=== PATIENT | male | born 1930 ===

== ENCOUNTER 2017-09-18 12:12 | Observation (INO) | payer MEDICARE, OTHER ==
[2017-09-18 12:22] VITALS: BMI 32.1
--- NOTE | 2017-09-18 12:57 | ED PDOC ---
HPI: Chest Pain Time Seen by Provider: 09/18/17 12:34 Chief Complaint (Nursing): Chest Pain Chief Complaint (Provider): chest pain dizziness History Per: Patient, Family, Senior Compensation Analyst History/Exam Limitations: no limitations Onset/Duration Of Symptoms: Hrs (2), Sudden Onset Current Symptoms Are (Timing): Better Severity: Severe Quality: Sharp Associated Symptoms: Dyspnea, Other (dizziness). denies: Nausea Modifying Factors: None Exacerbating Factors: None Alleviating Factors: None Additional Complaint(s): 87yo male hx DM, HTN and high cholesterol presents w family states he had chest pain sudden onset around 11am, left sided radiating to left arm associated with dizziness and mild dyspnea. Past Medical History Reviewed: Historical Data, Nursing Documentation, Vital Signs Vital Signs: Last Vital Signs Temp 98.1 F 09/18/17 12:48 Pulse 88 09/18/17 12:48 Resp 16 09/18/17 12:48 BP 114/54 L 09/18/17 12:48 Pulse Ox 97 09/18/17 12:48 - Medical History PMH: Asthma, Diabetes (type II), HTN, Hypercholesterolemia Denies: HIV, Chronic Kidney Disease Other PMH: denies cardiac history, no prior cardiology eval - Family History Family History: States: Unknown Family Hx - Living Arrangements Living Arrangements: With Family - Home Medications Home Medications: Ambulatory Orders Medication Instructions Recorded Aspirin [Ecotrin] 81 mg PO DAILY #0 tabec 12/24/15 Enalapril Maleate [Vasotec] 10 mg PO DAILY #0 tab 12/24/15 Folic Acid 1 mg PO DAILY #0 tab 12/24/15 [place]-3 Acid Ethyl Esters [Lovaza] 1 gm PO DAILY #0 capsule 12/24/15 Rosuvastatin Calcium [Crestor] 5 mg PO DAILY #0 tab 12/24/15 amLODIPine [Norvasc] 10 mg PO DAILY #0 tab 12/24/15 Acetaminophen [Extra Strength 1,000 mg PO TID #50 tablet 03/31/16 Non-Aspirin] Amoxicillin/Clavulanate [Augmentin 1 tab PO Q12H #20 tab 03/31/16 875 MG-125 MG] - Allergies Allergies/Adverse Reactions: Allergies Allergy/AdvReac Type Severity Reaction Status Date / Time No Known Allergies Allergy Verified 03/31/16 12:16 Review of Systems ROS Statement: Except As Marked, All Systems Reviewed And Found Negative Constitutional: Negative for: Fever, Chills Cardiovascular: Positive for: Chest Pain, Palpitations, Light Headedness. Negative for: Paroxysmal Noc. Dyspnea Respiratory: Negative for: Cough, Shortness of Breath Gastrointestinal: Negative for: Nausea, Abdominal Pain Genitourinary Male: Negative for: Dysuria Musculoskeletal: Positive for: Arm Pain. Negative for: Neck Pain, Back Pain Skin: Negative for: Rash, Lesions, Jaundice Neurological: Positive for: Dizziness. Negative for: Weakness, Numbness, Seizures, Headache Psych: Negative for: Suicidal ideation Physical Exam - Reviewed Nursing Documentation Reviewed: Yes Vital Signs Reviewed: Yes - Physical Exam Appears: Positive for: Well, Non-toxic, No Acute Distress Head Exam: Positive for: ATRAUMATIC, NORMAL INSPECTION, NORMOCEPHALIC Skin: Positive for: Normal Color, Warm, DRY Eye Exam: Positive for: EOMI, Normal appearance, PERRL ENT: Positive for: Normal ENT Inspection Neck: Positive for: Normal, Painless ROM Cardiovascular/Chest: Positive for: Regular Rate, Rhythm Respiratory: Positive for: CNT, Normal Breath Sounds Gastrointestinal/Abdominal: Positive for: Soft. Negative for: Tenderness, Guarding Back: Positive for: Normal Inspection Extremity: Positive for: Normal ROM Neurologic/Psych: Positive for: Alert, Oriented. Negative for: Motor/Sensory Deficits - ECG ECG: Positive for: Interpreted By Me ECG Rhythm: Positive for: Sinus Rhythm, Nonspecific Changes Interpretation Of ECG: PVCs Rate: 87 O2 Sat by Pulse Oximetry: 97 Pulse Ox Interpretation: Normal Medical Decision Making Medical Decision Making: workup for chest pain in elderly male with several risk factors for CAD initiated ASA/ nitro ordered instructed if pain returns to notify RN or MD immediately CXR/labs ordered r/o ACS Disposition - Disposition
[2017-09-18 13:04] LABS: BASO # 0.1 K/uL (0.0-0.2); BASO % 0.9 % (0.0-2.0); EOS # 0.3 K/uL (0.0-0.7); EOS % 2.9 % (0.0-4.0); HEMOGLOBIN 13.5 g/dL (12.0-18.0); LYMPH # 2.7 K/uL (1.0-4.3); LYMPH % 28.2 % (20.0-40.0); MEAN CELL VOLUME 93.8 fl (80.0-94.0); MEAN CORPUSCULAR HEMOGLOBIN 32.4 pg (27.0-31.0); MEAN CORPUSCULAR HGB CONC 34.5 g/dL (33.0-37.0); MEAN PLATELET VOLUME 9.2 fl (7.2-11.7); MONO # 0.6 K/uL (0.0-0.8); MONO % 6.5 % (0.0-10.0); NEUT # 5.8 K/uL (1.8-7.0); NEUT % 61.5 % (50.0-75.0); NRBC % 0.1 % (0.0-0.0); RBC 4.18 Mil/uL (4.40-5.90); WHITE BLOOD COUNT 9.4 K/uL (4.8-10.8)
[2017-09-18 13:12] LABS: ALB/GLOB RATIO 1.1 (1.0-2.1); ALBUMIN 4.2 g/dL (3.5-5.0); ALT/SGPT 48 U/L (21-72); AST/SGOT 33 U/L (17-59); BLOOD UREA NITROGEN 15 mg/dl (9-20); CALCIUM 8.9 mg/dL (8.4-10.2); GFR AFRICAN-AMERICAN > 60; GFR NON-AFRICAN AMERICAN > 60
[2017-09-18 13:14] LABS: URINE BILIRUBIN NEGATIVE (NEGATIVE); URINE BLOOD NEGATIVE (NEGATIVE); URINE CLARITY CLEAR (Clear); URINE COLOR STRAW (YELLOW); URINE GLUCOSE (UA) NEG (Normal); URINE LEUKOCYTE ESTERASE NEG Leu/uL (Negative); URINE PROTEIN NEGATIVE (NEGATIVE); URINE UROBILINOGEN 0.2-1.0 mg/dL (0.2-1.0)
[2017-09-18 13:21] LABS: PARTIAL THROMBOPLASTIN TIME 31.5 Seconds (25.6-37.1); PROTHROMBIN TIME 10.8 Seconds (9.8-13.1)
[2017-09-18 13:23] LABS: B-TYPE NATRIURETIC PEPTIDE 210 pg/ml (0-900)
--- NOTE | 2017-09-18 15:31 | CP.PCM.HP ---
History of Present Illness - History of Present Illness History of Present Illness: CC: chest pain HPI: 87 year old male PMH DM?, HTN, HLD presents after an episode of chest pain this morning at rest, pressure/aching in nature, left sided, non radiating, assc with dizziness, not associated with dyspnea or malaise. Denies chest pain or dyspnea on exertion, however difficult to assess if patient reliability as it is clear he does not wish to be admitted. Patient did agree to stay at the urging of family members due to CV risk. HD stable, NAD. ROS: per HPI , all other systems reviewed and negative PMSH: DM? HTN, HLD FH: denies SH: denies tobacco, ETOH, IVDU meds: as below NKDA Present on Admission - Present on Admission Any Indicators Present on Admission: No Past Patient History - Past Medical History & Family History Past Medical History?: Yes - Past Social History Smoking Status: Current Some Days Smoker - CARDIAC Hx Cardiac Disorders: Yes - PULMONARY Hx Respiratory Disorders: Yes - NEUROLOGICAL Hx Neurological Disorder: No - HEENT Hx HEENT Problems: No - RENAL Hx Chronic Kidney Disease: No - ENDOCRINE/METABOLIC Hx Endocrine Disorders: Yes - HEMATOLOGICAL/ONCOLOGICAL Hx Human Immunodeficiency Virus (HIV): No - INTEGUMENTARY Hx Dermatological Problems: No - MUSCULOSKELETAL/RHEUMATOLOGICAL Hx Musculoskeletal Disorders: No Hx Falls: No - GASTROINTESTINAL Hx Gastrointestinal Disorders: No - GENITOURINARY/GYNECOLOGICAL Hx Genitourinary Disorders: No - PSYCHIATRIC Hx Psychophysiologic Disorder: No Hx Substance Use: No - SURGICAL HISTORY Hx Surgeries: No - ANESTHESIA Hx Anesthesia: Yes Hx Anesthesia Reactions: No Hx Malignant Hyperthermia: No Meds Allergies/Adverse Reactions: Allergies Allergy/AdvReac Type Severity Reaction Status Date / Time No Known Allergies Allergy Verified 03/31/16 12:16 Physical Exam - Additional Findings Additional findings: Vitals Reviewed GEN: WDWN, alert, cooperative HEENT: NCAT, PERRL, EOMI HEART: RRR, +S1S2, NO MRG LUNG: CTAB, NO WRR ABD: soft, NT, ND, No HSM, No masses EXT: normal pedal pulses, normal capillary refill NEURO: awake, alert, no focal deficits SKIN: warm, dry- PSYCH: normal mood, normal affect Results - Vital Signs Recent Vital Signs: Last Vital Signs Temp 98.2 F 09/18/17 15:21 Pulse 85 09/18/17 15:21 Resp 16 09/18/17 15:21 BP 179/89 H 09/18/17 15:21 Pulse Ox 98 09/18/17 15:21 - Labs Result Diagrams: 09/18/17 12:55 09/18/17 12:55 Labs: Laboratory Results - last 24 hr 09/18/17 09/18/17 09/18/17 12:55 12:55 12:55 WBC 9.4 RBC 4.18 L Hgb 13.5 Hct 39.2 MCV 93.8 MCH 32.4 H MCHC 34.5 RDW 14.0 Plt Count 231 MPV 9.2 Neut % (Auto) 61.5 Lymph % (Auto) 28.2 [place] % (Auto) 6.5 Eos % (Auto) 2.9 Baso % (Auto) 0.9 Neut # (Auto) 5.8 Lymph # (Auto) 2.7 [place] # (Auto) 0.6 Eos # (Auto) 0.3 Baso # (Auto) 0.1 PT 10.8 INR 1.0 APTT 31.5 Sodium 140 Potassium 3.9 Chloride 100 Carbon Dioxide 25 Anion Gap 19 BUN 15 Creatinine 0.6 L Est GFR ( Amer) > 60 Est GFR (Non-Af Amer) > 60 Random Glucose 162 H Calcium 8.9 Total Bilirubin 0.5 AST 33 ALT 48 Alkaline Phosphatase 99 Troponin I < 0.0120 NT-Pro-B Natriuret Pep 210 Total Protein 7.9 Albumin 4.2 Globulin 3.7 Albumin/Globulin Ratio 1.1 Urine Color Urine Clarity Urine pH Ur Specific [place] Urine Protein Urine Glucose (UA) Urine Ketones Urine Blood Urine Nitrate Urine Bilirubin Urine Urobilinogen Ur Leukocyte Esterase Urine RBC (Auto) Urine Microscopic WBC 09/18/17 13:05 WBC RBC Hgb Hct MCV MCH MCHC RDW Plt Count MPV Neut % (Auto) Lymph % (Auto) [place] % (Auto) Eos % (Auto) Baso % (Auto) Neut # (Auto) Lymph # (Auto) [place] # (Auto) Eos # (Auto) Baso # (Auto) PT INR APTT Sodium Potassium Chloride Carbon Dioxide Anion Gap BUN Creatinine Est GFR ( Amer) Est GFR (Non-Af Amer) Random Glucose Calcium Total Bilirubin AST ALT Alkaline Phosphatase Troponin I NT-Pro-B Natriuret Pep Total Protein Albumin Globulin Albumin/Globulin Ratio Urine Color Straw Urine Clarity Clear Urine pH 6.0 Ur Specific [place] 1.008 Urine Protein Negative Urine Glucose (UA) Neg Urine Ketones Negative Urine Blood Negative Urine Nitrate Negative Urine Bilirubin Negative Urine Urobilinogen 0.2-1.0 Ur Leukocyte Esterase Neg Urine RBC (Auto) < 1 Urine Microscopic WBC < 1 Assessment & Plan - Assessment and Plan (Free Text) Plan: 87 year old male PMH DM?, HTN, HLD presents after an episode of chest pain this morning at rest, pressure/aching in nature, left sided, non radiating, assc with dizziness, not associated with dyspnea or malaise. Denies chest pain or dyspnea on exertion, however difficult to assess if patient reliability as it is clear he does not wish to be admitted. Patient did agree to stay at the urging of family members due to CV risk. HD stable, NAD. Chest Pain HTN HLD - currently without chest pain - EKG no changes from prior - Enzymes neg x1, trend q2 - ASA, Plavix, BB, ACEI, Statin ordered - monitor on TELE - Cardiology Consult Dr. Tate for eval for possible Stress Test? DM? - A1C pending VTE - Lovenox
[2017-09-18] MEDS: Metoprolol Succinate 25 mg XL Tab PO SCH (16:26)
--- NOTE | 2017-09-18 19:28 | RAD ---
HISTORY: chest pain/ r/o infiltrate COMPARISON: No prior. TECHNIQUE: Chest PA and lateral FINDINGS: LUNGS: No active pulmonary disease. PLEURA: No significant pleural effusion identified. No pneumothorax apparent. CARDIOVASCULAR: Normal. Atherosclerotic aorta. OSSEOUS STRUCTURES: No significant abnormalities. VISUALIZED UPPER ABDOMEN: Normal. OTHER FINDINGS: None. IMPRESSION: No active disease.
[2017-09-19 01:42] LABS: HDL CHOLESTEROL 38 MG/DL (30-70)
[2017-09-19 01:52] LABS: LDL CHOLESTEROL 79 mg/dL (0-129)
[2017-09-19 07:53] VITALS: RESP 18
[2017-09-19] MEDS: Metoprolol Succinate 25 mg XL Tab PO SCH (07:59)
[2017-09-19] MEDS ORDERED: Omega-3-Acid Ethyl Esters 1 GM Cap PO SCH (09:00)
[2017-09-19] MEDS ORDERED: Enoxaparin 40 mg Syringe SC SCH (09:00)
--- NOTE | 2017-09-19 09:58 | CP.PCM.CON ---
History of Present Illness - History of Present Illness History of Present Illness: 87 y/o male admitted with left sided chest tenderness Pt claims that yesterday he devoloped left anterior wall chest pin point tenderness Tender to palpate EKG: normal Echo: normal Troponin: neg x 3 Pain is reproducible on palpation Past Patient History - Past Medical History & Family History Past Medical History?: Yes - Past Social History Smoking Status: Never Smoked - CARDIAC Hx Cardiac Disorders: Yes Hx Hypercholesterolemia: Yes Hx Hypertension: Yes - PULMONARY Hx Respiratory Disorders: Yes Hx Asthma: Yes - NEUROLOGICAL Hx Neurological Disorder: No - HEENT Hx HEENT Problems: No - RENAL Hx Chronic Kidney Disease: No - ENDOCRINE/METABOLIC Hx Endocrine Disorders: Yes Hx Diabetes Mellitus Type 2: Yes - HEMATOLOGICAL/ONCOLOGICAL Hx Blood Disorders: No Hx AIDS: No Hx Human Immunodeficiency Virus (HIV): No - INTEGUMENTARY Hx Dermatological Problems: No - MUSCULOSKELETAL/RHEUMATOLOGICAL Hx Musculoskeletal Disorders: No Hx Falls: No - GASTROINTESTINAL Hx Gastrointestinal Disorders: No - GENITOURINARY/GYNECOLOGICAL Hx Genitourinary Disorders: No - PSYCHIATRIC Hx Psychophysiologic Disorder: No Hx Substance Use: No - SURGICAL HISTORY Hx Surgeries: No - ANESTHESIA Hx Anesthesia: Yes Hx Anesthesia Reactions: No Hx Malignant Hyperthermia: No Has any member of the family had a problem w/ anesthesia?: No Meds Allergies/Adverse Reactions: Allergies Allergy/AdvReac Type Severity Reaction Status Date / Time No Known Allergies Allergy Verified 03/31/16 12:16 - Medications Medications: Current Medications Amlodipine Besylate (Norvasc) 10 mg PO DAILY [facility] Last Admin: 09/19/17 08:01 Dose: 10 mg Aspirin (Ecotrin) 81 mg PO DAILY [facility] Last Admin: 09/19/17 08:00 Dose: 81 mg Atorvastatin Calcium (Lipitor) 10 mg PO DAILY [facility] Last Admin: 09/19/17 08:00 Dose: 10 mg Clopidogrel Bisulfate (Plavix) 75 mg PO DAILY [facility] Last Admin: 09/19/17 08:00 Dose: 75 mg Enalapril Maleate (Vasotec) 10 mg PO DAILY [facility] Last Admin: 09/19/17 08:00 Dose: 10 mg Enoxaparin Sodium (Lovenox) 40 mg SC DAILY [facility] PRN Reason: Protocol Last Admin: 09/19/17 08:01 Dose: Not Given Folic Acid (Folic Acid) 1 mg PO DAILY [facility] Last Admin: 09/19/17 08:00 Dose: 1 mg Metoprolol Succinate (Toprol Xl) 25 mg PO DAILY [facility] Last Admin: 09/19/17 07:59 Dose: 25 mg [id number] Ethyl Esters (Lovaza) 1 gm PO DAILY [facility] Last Admin: 09/19/17 07:59 Dose: 1 gm Physical Exam - Respiratory Exam Respiratory Exam: NORMAL BREATHING PATTERN - Cardiovascular Exam Cardiovascular Exam: REGULAR RHYTHM Results - Vital Signs Recent Vital Signs: Last Vital Signs Temp 98.1 F 09/19/17 07:52 Pulse 75 09/19/17 08:01 Resp 18 09/19/17 07:52 BP 169/75 H 09/19/17 08:01 Pulse Ox 99 09/19/17 07:52 - Labs Result Diagrams: 09/18/17 12:55 09/18/17 12:55 Labs: Laboratory Results - last 24 hr 09/18/17 09/18/17 09/18/17 12:55 12:55 12:55 WBC 9.4 RBC 4.18 L Hgb 13.5 Hct 39.2 MCV 93.8 MCH 32.4 H MCHC 34.5 RDW 14.0 Plt Count 231 MPV 9.2 Neut % (Auto) 61.5 Lymph % (Auto) 28.2 [place] % (Auto) 6.5 Eos % (Auto) 2.9 Baso % (Auto) 0.9 Neut # (Auto) 5.8 Lymph # (Auto) 2.7 [place] # (Auto) 0.6 Eos # (Auto) 0.3 Baso # (Auto) 0.1 PT 10.8 INR 1.0 APTT 31.5 Sodium 140 Potassium 3.9 Chloride 100 Carbon Dioxide 25 Anion Gap 19 BUN 15 Creatinine 0.6 L Est GFR ( Amer) > 60 Est GFR (Non-Af Amer) > 60 Random Glucose 162 H Calcium 8.9 Total Bilirubin 0.5 AST 33 ALT 48 Alkaline Phosphatase 99 Troponin I < 0.0120 NT-Pro-B Natriuret Pep 210 Total Protein 7.9 Albumin 4.2 Globulin 3.7 Albumin/Globulin Ratio 1.1 Triglycerides Cholesterol LDL Cholesterol Direct HDL Cholesterol Urine Color Urine Clarity Urine pH Ur Specific [place] Urine Protein Urine Glucose (UA) Urine Ketones Urine Blood Urine Nitrate Urine Bilirubin Urine Urobilinogen Ur Leukocyte Esterase Urine RBC (Auto) Urine Microscopic WBC 09/18/17 09/18/17 09/19/17 13:05 18:30 01:27 WBC RBC Hgb Hct MCV MCH MCHC RDW Plt Count MPV Neut % (Auto) Lymph % (Auto) [place] % (Auto) Eos % (Auto) Baso % (Auto) Neut # (Auto) Lymph # (Auto) [place] # (Auto) Eos # (Auto) Baso # (Auto) PT INR APTT Sodium Potassium Chloride Carbon Dioxide Anion Gap BUN Creatinine Est GFR ( Amer) Est GFR (Non-Af Amer) Random Glucose Calcium Total Bilirubin AST ALT Alkaline Phosphatase Troponin I < 0.0120 < 0.0120 NT-Pro-B Natriuret Pep Total Protein Albumin Globulin Albumin/Globulin Ratio Triglycerides Cholesterol LDL Cholesterol Direct HDL Cholesterol Urine Color Straw Urine Clarity Clear Urine pH 6.0 Ur Specific [place] 1.008 Urine Protein Negative Urine Glucose (UA) Neg Urine Ketones Negative Urine Blood Negative Urine Nitrate Negative Urine Bilirubin Negative Urine Urobilinogen 0.2-1.0 Ur Leukocyte Esterase Neg Urine RBC (Auto) < 1 Urine Microscopic WBC < 1 09/19/17 01:30 WBC RBC Hgb Hct MCV MCH MCHC RDW Plt Count MPV Neut % (Auto) Lymph % (Auto) [place] % (Auto) Eos % (Auto) Baso % (Auto) Neut # (Auto) Lymph # (Auto) [place] # (Auto) Eos # (Auto) Baso # (Auto) PT INR APTT Sodium Potassium Chloride Carbon Dioxide Anion Gap BUN Creatinine Est GFR ( Amer) Est GFR (Non-Af Amer) Random Glucose Calcium Total Bilirubin AST ALT Alkaline Phosphatase Troponin I NT-Pro-B Natriuret Pep Total Protein Albumin Globulin Albumin/Globulin Ratio Triglycerides 224 H D Cholesterol 155 LDL Cholesterol Direct 79 HDL Cholesterol 38 Urine Color Urine Clarity Urine pH Ur Specific [place] Urine Protein Urine Glucose (UA) Urine Ketones Urine Blood Urine Nitrate Urine Bilirubin Urine Urobilinogen Ur Leukocyte Esterase Urine RBC (Auto) Urine Microscopic WBC Assessment & Plan (1) Chest wall pain Assessment and Plan: Musculoskeletal Pain Pt may be discharged Status: Acute
--- NOTE | 2017-09-19 11:40 | CP.PCM.DIS ---
Provider - Provider Date of Admission: 09/18/17 13:39 Attending physician: Katelyn Bonilla DO Time Spent in preparation of Discharge (in minutes): 30 Diagnosis - Discharge Diagnosis (1) Chest pain Status: Acute (2) Chest wall pain Status: Acute Hospital Course - Lab Results Lab Results: Most Recent Lab Values WBC 9.4 K/uL (4.8-10.8) 09/18/17 12:55 RBC 4.18 Mil/uL (4.40-5.90) L 09/18/17 12:55 Hgb 13.5 g/dL (12.0-18.0) 09/18/17 12:55 Hct 39.2 % (35.0-51.0) 09/18/17 12:55 MCV 93.8 fl (80.0-94.0) 09/18/17 12:55 MCH 32.4 pg (27.0-31.0) H 09/18/17 12:55 MCHC 34.5 g/dL (33.0-37.0) 09/18/17 12:55 RDW 14.0 % (11.5-14.5) 09/18/17 12:55 Plt Count 231 K/uL (130-400) 09/18/17 12:55 MPV 9.2 fl (7.2-11.7) 09/18/17 12:55 Neut % (Auto) 61.5 % (50.0-75.0) 09/18/17 12:55 Lymph % (Auto) 28.2 % (20.0-40.0) 09/18/17 12:55 Power % (Auto) 6.5 % (0.0-10.0) 09/18/17 12:55 Eos % (Auto) 2.9 % (0.0-4.0) 09/18/17 12:55 Baso % (Auto) 0.9 % (0.0-2.0) 09/18/17 12:55 Neut # (Auto) 5.8 K/uL (1.8-7.0) 09/18/17 12:55 Lymph # (Auto) 2.7 K/uL (1.0-4.3) 09/18/17 12:55 Power # (Auto) 0.6 K/uL (0.0-0.8) 09/18/17 12:55 Eos # (Auto) 0.3 K/uL (0.0-0.7) 09/18/17 12:55 Baso # (Auto) 0.1 K/uL (0.0-0.2) 09/18/17 12:55 PT 10.8 Seconds (9.8-13.1) 09/18/17 12:55 INR 1.0 (0.9-1.2) 09/18/17 12:55 APTT 31.5 Seconds (25.6-37.1) 09/18/17 12:55 Sodium 140 mmol/l (132-148) 09/18/17 12:55 Potassium 3.9 MMOL/L (3.6-5.0) 09/18/17 12:55 Chloride 100 mmol/L (98-107) 09/18/17 12:55 Carbon Dioxide 25 mmol/L (22-30) 09/18/17 12:55 Anion Gap 19 (10-20) 09/18/17 12:55 BUN 15 mg/dl (9-20) 09/18/17 12:55 Creatinine 0.6 mg/dl (0.8-1.5) L 09/18/17 12:55 Est GFR ( Amer) > 60 09/18/17 12:55 Est GFR (Non-Af Amer) > 60 09/18/17 12:55 Random Glucose 162 mg/dL (75-110) H 09/18/17 12:55 Calcium 8.9 mg/dL (8.4-10.2) 09/18/17 12:55 Total Bilirubin 0.5 mg/dl (0.2-1.3) 09/18/17 12:55 AST 33 U/L (17-59) 09/18/17 12:55 ALT 48 U/L (21-72) 09/18/17 12:55 Alkaline Phosphatase 99 U/L (38-126) 09/18/17 12:55 Troponin I < 0.0120 ng/mL (0.00-0.120) 09/19/17 01:27 NT-Pro-B Natriuret Pep 210 pg/ml (0-900) 09/18/17 12:55 Total Protein 7.9 G/DL (6.3-8.2) 09/18/17 12:55 Albumin 4.2 g/dL (3.5-5.0) 09/18/17 12:55 Globulin 3.7 gm/dL (2.2-3.9) 09/18/17 12:55 Albumin/Globulin Ratio 1.1 (1.0-2.1) 09/18/17 12:55 Triglycerides 224 mg/DL (0-149) H D 09/19/17 01:30 Cholesterol 155 mg/dL (0-199) 09/19/17 01:30 LDL Cholesterol Direct 79 mg/dL (0-129) 09/19/17 01:30 HDL Cholesterol 38 MG/DL (30-70) 09/19/17 01:30 Urine Color Straw (YELLOW) 09/18/17 13:05 Urine Clarity Clear (Clear) 09/18/17 13:05 Urine pH 6.0 (5.0-8.0) 09/18/17 13:05 Ur Specific [place] 1.008 (1.003-1.030) 09/18/17 13:05 Urine Protein Negative mg/dL (NEGATIVE) 09/18/17 13:05 Urine Glucose (UA) Neg mg/dL (Normal) 09/18/17 13:05 Urine Ketones Negative mg/dL (NEGATIVE) 09/18/17 13:05 Urine Blood Negative (NEGATIVE) 09/18/17 13:05 Urine Nitrate Negative (NEGATIVE) 09/18/17 13:05 Urine Bilirubin Negative (NEGATIVE) 09/18/17 13:05 Urine Urobilinogen 0.2-1.0 mg/dL (0.2-1.0) 09/18/17 13:05 Ur Leukocyte Esterase Neg Milo/uL (Negative) 09/18/17 13:05 Urine RBC (Auto) < 1 /hpf (0-3) 09/18/17 13:05 Urine Microscopic WBC < 1 /hpf (0-5) 09/18/17 13:05 - Hospital Course Hospital Course: 87 year old male PMH DM?, HTN, HLD presents after an episode of chest pain this morning at rest, pressure/aching in nature, left sided, non radiating, assc with dizziness, not associated with dyspnea or malaise. Denies chest pain or dyspnea on exertion, however difficult to assess if patient reliability as it is clear he does not wish to be admitted. Patient did agree to stay at the urging of family members due to CV risk. HD stable, NAD. Pt evaluated by cardiology, stable for discharge home. Troponins negative x3. Follow up with PCP in one week. Discharge Exam - Head Exam Additional comments: Vitals Reviewed GEN: WDWN, alert, cooperative HEENT: NCAT, PERRL, EOMI HEART: RRR, +S1S2, NO MRG LUNG: CTAB, NO WRR ABD: soft, NT, ND, No HSM, No masses EXT: normal pedal pulses, normal capillary refill NEURO: awake, alert, no focal deficits SKIN: warm, dry- PSYCH: normal mood, normal affect Discharge Plan - Discharge Medications Prescriptions: amLODIPine [Norvasc] 10 mg PO DAILY #30 tab Aspirin [Ecotrin] 81 mg PO DAILY #30 tabec Enalapril Maleate [Vasotec] 10 mg PO DAILY #30 tab Folic Acid 1 mg PO DAILY #30 tab Metoprolol Succinate [Toprol XL] 25 mg PO DAILY #30 tab Rosuvastatin Calcium [Crestor] 5 mg PO DAILY #30 tab - Follow Up Plan Condition: GOOD Disposition: HOME/ ROUTINE
[2017-09-19 12:04] VITALS: BP 124/60; PULSE 69; TEMP 97; O2SAT 98
--- NOTE | 2017-09-19 17:09 | CARD ---
APPROVED REPORT EKG Measurement Heart [id number] <Conclusion> Sinus rhythm with frequent premature ventricular complexes Otherwise normal ECG
== END 2017-09-19 13:38 | disposition home or self-care (01) ==
LOC: H.ER 12:12 → H.ERHOLD 13:39 → H.TEL 15:30
PROVIDERS: ADMIT Student in an Organized Health Care Education/Training Program; ATTEND Student in an Organized Health Care Education/Training Program
DX: R07.89 Other chest pain (principal); E11.9 Type 2 diabetes mellitus without complications; E78.00 Pure hypercholesterolemia, unspecified; E78.5 Hyperlipidemia, unspecified; F17.200 Nicotine dependence, unspecified, uncomplicated; I10 Essential (primary) hypertension; J45.909 Unspecified asthma, uncomplicated; Z79.82 Long term (current) use of aspirin; Z79.899 Other long term (current) drug therapy; M79.1 Myalgia
CPT/HCPCS: 36415; 71046; 80053; 80061; 81003; 83036; 83880; 84484; 85025; 85610; 85730; 93005; 99285; G0378

== ENCOUNTER 2018-05-27 11:23 | Emergency (ER) | payer MEDICARE, OTHER ==
[2018-05-27 11:23] VITALS: BMI 32.1
[2018-05-27 11:32] VITALS: TEMP 98
--- NOTE | 2018-05-27 12:13 | ED PDOC ---
Lower Extremity Pain/Injury Time Seen by Provider: 05/27/18 11:54 Chief Complaint (Nursing): Lower Extremity Problem/Injury Chief Complaint (Provider): leg pain History Per: Patient Additional Complaint(s): 88 yo male, reports a PMH of DM and HTN, presents with complaints of generalized body aches and b/l LE pain. Pt denies any CP or SOB. No fever or chills, nasal congestion or cough. No abdominal pain, nausea vomiting or diarrhea. Past Medical History Vital Signs: Last Vital Signs Temp 98.0 F 05/27/18 11:31 Pulse 91 H 05/27/18 11:31 Resp 18 05/27/18 11:31 BP 155/72 H 05/27/18 11:31 Pulse Ox 98 05/27/18 11:53 - Medical History PMH: Asthma, Diabetes (type II), HTN, Hypercholesterolemia Denies: HIV, Chronic Kidney Disease - Family History Family History: States: Unknown Family Hx - Immunization History Hx Tetanus Toxoid Vaccination: No Hx Influenza Vaccination: No Hx Pneumococcal Vaccination: No - Home Medications Home Medications: Ambulatory Orders Medication Instructions Recorded [place]-3 Acid Ethyl Esters [Lovaza] 1 gm PO DAILY #0 capsule 12/24/15 Aspirin [Ecotrin] 81 mg PO DAILY #30 tabec 09/19/17 Enalapril Maleate [Vasotec] 10 mg PO DAILY #30 tab 09/19/17 Folic Acid 1 mg PO DAILY #30 tab 09/19/17 Metoprolol Succinate XL [Toprol XL] 25 mg PO DAILY #30 tab 09/19/17 Rosuvastatin Calcium [Crestor] 5 mg PO DAILY #30 tab 09/19/17 amLODIPine [Norvasc] 10 mg PO DAILY #30 tab 09/19/17 - Allergies Allergies/Adverse Reactions: Allergies Allergy/AdvReac Type Severity Reaction Status Date / Time No Known Allergies Allergy Verified 05/27/18 11:53 Wells Criteria for PE - Wells Criteria for Pulmonary Embolism Clinical Signs and Symptoms of DVT: No P.E is #1 Diagnosis, or Equally Likely: No Heart Rate >100: No Immobilization at least 3 days;Surgery previous 4 weeks: No Previous, objectively diagnosed PE or DVT: No Hemoptysis: No Malignancy w/treatment within 6 months, or palliative: No Total Score: 0 Review of Systems ROS Statement: Except As Marked, All Systems Reviewed And Found Negative Musculoskeletal: Positive for: Leg Pain Physical Exam - Reviewed Nursing Documentation Reviewed: Yes Vital Signs Reviewed: Yes - Physical Exam Appears: Positive for: Well, Non-toxic, No Acute Distress Head Exam: Positive for: ATRAUMATIC, NORMAL INSPECTION, NORMOCEPHALIC Skin: Positive for: Normal Color, Warm, DRY Eye Exam: Positive for: EOMI, Normal appearance, PERRL ENT: Positive for: Normal ENT Inspection Neck: Positive for: Normal, Painless ROM Cardiovascular/Chest: Positive for: Regular Rate, Rhythm Respiratory: Positive for: CNT, Normal Breath Sounds Gastrointestinal/Abdominal: Positive for: Normal Exam, Soft Back: Positive for: Normal Inspection Extremity: Positive for: Normal ROM, Other (DP pulses 2+ b/l). Negative for: Tenderness, Calf Tenderness, Deformity, Swelling Neurologic/Psych: Positive for: Alert, Oriented - Laboratory Results Result Diagrams: 05/27/18 13:00 05/27/18 13:00 - ECG O2 Sat by Pulse Oximetry: 98 Medical Decision Making Medical Decision Making: Diagnostics ordered; however, after blood work Pt requesting to leave without US. Pt educated on importance of US; however, pt reports that he would like to go home right now. he feels ok Disposition - Clinical Impression Clinical Impression: Leg pain - Patient ED Disposition Is Patient to be Admitted: No - Disposition Disposition: Routine/Home Disposition Time: 16:07 Condition: STABLE Instructions: Lower Extremity Exercises Seated Forms: [employer] (Kazakh)
--- NOTE | 2018-05-27 12:41 | RAD ---
Date of service: 05/27/2018 PROCEDURE: CHEST RADIOGRAPH, 1 VIEW HISTORY: pain COMPARISON: Chest radiograph dated 09/18/2017. FINDINGS: LUNGS: Peripheral left lower lung calcified granuloma. PLEURA: No pneumothorax or pleural fluid seen. CARDIOVASCULAR: Aortic atherosclerotic calcifications. Cardiomediastinal silhouette stably enlarged. OSSEOUS STRUCTURES: Changed. VISUALIZED UPPER ABDOMEN: Normal. OTHER FINDINGS: None. IMPRESSION: No active disease.
[2018-05-27 13:26] LABS: ALB/GLOB RATIO 1.2 (1.0-2.1); ALBUMIN 4.3 g/dL (3.5-5.0); ALT/SGPT 41 U/L (21-72); AST/SGOT 34 U/L (17-59); BLOOD UREA NITROGEN 13 mg/dl (9-20); CALCIUM 9.1 mg/dL (8.4-10.2); GFR NON-AFRICAN AMERICAN > 60
[2018-05-27 13:31] LABS: BASO # 0.1 K/uL (0.0-0.2); BASO % 0.9 % (0.0-2.0); EOS # 0.1 K/uL (0.0-0.7); EOS % 1.9 % (0.0-4.0); HEMOGLOBIN 13.1 g/dL (12.0-18.0); LYMPH % 25.7 % (20.0-40.0); MEAN CELL VOLUME 96.5 fl (80.0-94.0); MEAN CORPUSCULAR HEMOGLOBIN 31.8 pg (27.0-31.0); MEAN CORPUSCULAR HGB CONC 32.9 g/dL (33.0-37.0); MEAN PLATELET VOLUME 9.2 fl (7.2-11.7); MONO # 0.4 K/uL (0.0-0.8); MONO % 5.2 % (0.0-10.0); NEUT # 5.1 K/uL (1.8-7.0); NEUT % 66.3 % (50.0-75.0); NRBC % 0.3 % (0.0-0.0); RBC 4.11 Mil/uL (4.40-5.90); RED CELL DISTRIBUTION WIDTH 13.8 % (11.5-14.5); WHITE BLOOD COUNT 7.6 K/uL (4.8-10.8)
[2018-05-27 15:59] VITALS: BP 155/83; PULSE 80; RESP 20
[2018-05-27 16:04] VITALS: O2SAT 98
[2018-05-27] MEDS ORDERED: Iohexol 240 (50 ml) ONE (20:12)
== END 2018-05-27 16:05 | disposition home or self-care (01) ==
LOC: H.ER 11:23
DX: M79.606 Pain in leg, unspecified (principal); E11.9 Type 2 diabetes mellitus without complications; E78.00 Pure hypercholesterolemia, unspecified; I10 Essential (primary) hypertension; J45.909 Unspecified asthma, uncomplicated; Z79.82 Long term (current) use of aspirin

== ENCOUNTER 2018-08-14 09:10 | Emergency (ER) | payer MEDICARE, OTHER ==
[2018-08-14 10:07] VITALS: BMI 31.0
--- NOTE | 2018-08-14 10:09 | ED PDOC ---
HPI: Chest Pain Additional Complaint(s): 88 year old male PMH of DM, HTN, HLD presents complaining of intermittent L sided chest pain at rest, since yesterday, pressure/aching, non radiating, not associated with dizziness, dyspnea or malaise. Denies chest pain or dyspnea on exertion. No others active complaints today. PMD: Dr Nelson <Lore Shane - Last Filed: 08/14/18 12:30> <Yordan Wharton - Last Filed: 08/19/18 11:55> Time Seen by Provider: 08/14/18 10:00 Against Medical Advice - AMA Patient Left Against Medical Advice: The patient declines admission to the hospital and wishes to leave the Emergency Department. This action is against my medical advice. This decision was made with informed refusal. The patient was told that admission to the hospital is necessary. Explanation of the reasons why were discussed. The risks of leaving were explained to the patient and include, but are not limited to, worsening of known or currently unknown conditions, permanent disability and from undiagnosed or untreated conditions. The patient has the capacity to make this informed decision and understands my explanation of the current medical problem and risks of leaving. The patient voluntarily accepts these risks and signed an AMA form documenting our conversation. The patient was given the opportunity to ask questions and reconsider. The patient was encouraged to return to the Emergency Department at any time for further care. <Yordan Wharton - Last Filed: 08/19/18 11:55> Supervising Attending Note - Supervising Attending Note The Documented history was done by the: Physician Reference Investigator, Attending Physician The documented physical exam was done by the: Physician Reference Investigator, Attending Physician The documented procedures were done by the: Physician Reference Investigator, Attending Physician - Attestation: I have personally seen and examined this patient.: Yes I have fully participated in the care of the patient.: Yes I have reviewed all pertinent clinical information: Yes <Yordan Wharton - Last Filed: 08/19/18 11:55> Past Medical History - Medical History PMH: Asthma, Diabetes (type II), HTN, Hypercholesterolemia Denies: HIV, Chronic Kidney Disease - Family History Family History: States: Unknown Family Hx - Immunization History Hx Tetanus Toxoid Vaccination: No Hx Influenza Vaccination: No Hx Pneumococcal Vaccination: No <Lore Shane - Last Filed: 08/14/18 12:30> Reviewed: Historical Data, Nursing Documentation, Vital Signs Vital Signs: Last Vital Signs Temp 98.3 F 08/14/18 10:34 Pulse 80 08/14/18 12:10 Resp 20 08/14/18 12:10 BP 150/95 H 08/14/18 12:10 Pulse Ox 97 08/14/18 10:42 - Surgical History Surgical History: No Surg Hx <Yordan Wharton - Last Filed: 08/19/18 11:55> - Home Medications Home Medications: Ambulatory Orders Medication Instructions Recorded [place]-3 Acid Ethyl Esters [Lovaza] 1 gm PO DAILY #0 capsule 12/24/15 Aspirin [Ecotrin] 81 mg PO DAILY #30 tabec 09/19/17 Enalapril Maleate [Vasotec] 10 mg PO DAILY #30 tab 09/19/17 Folic Acid 1 mg PO DAILY #30 tab 09/19/17 Metoprolol Succinate XL [Toprol XL] 25 mg PO DAILY #30 tab 09/19/17 Rosuvastatin Calcium [Crestor] 5 mg PO DAILY #30 tab 09/19/17 amLODIPine [Norvasc] 10 mg PO DAILY #30 tab 09/19/17 - Allergies Allergies/Adverse Reactions: Allergies Allergy/AdvReac Type Severity Reaction Status Date / Time No Known Allergies Allergy Verified 08/14/18 10:34 ISAAC Risk Score for UA/NSTEMI - ISAAC Risk Score Age > 64: YES 3 or more CAD Risk Factors: NO Known CAD (Stenosis greater than 50%): NO Aspirin use in past 7 days: NO Severe Angina: NO EKG ST changes greater than 0.5mm: NO Positive Cardiac Marker: NO ISAAC Score: 1 Risk %: 5% <Yordan Wharton - Last Filed: 08/19/18 11:55> Wells Criteria for PE - Wells Criteria for Pulmonary Embolism Clinical Signs and Symptoms of DVT: No P.E is #1 Diagnosis, or Equally Likely: No Heart Rate >100: No Immobilization at least 3 days;Surgery previous 4 weeks: No Previous, objectively diagnosed PE or DVT: No Hemoptysis: No Malignancy w/treatment within 6 months, or palliative: No Total Score: 0 <Yordan Wharton A - Last Filed: 08/19/18 11:55> Review of Systems Constitutional: Negative for: Fever, Sweats, Weakness Cardiovascular: Positive for: Chest Pain. Negative for: Palpitations, Ortho pnea, Edema Respiratory: Negative for: Cough, Shortness of Breath, SOB with Exertion Gastrointestinal: Negative for: Nausea, Vomiting, Abdominal Pain, Diarrhea Musculoskeletal: Negative for: Neck Pain, Shoulder Pain, Back Pain Neurological: Negative for: Weakness, Numbness, Incoordination <Lore Shane - Last Filed: 08/14/18 12:30> ROS Statement: Except As Marked, All Systems Reviewed And Found Negative <Yordan Wharton - Last Filed: 08/19/18 11:55> Physical Exam - Reviewed Nursing Documentation Reviewed: Yes Vital Signs Reviewed: Yes - Physical Exam Appears: Positive for: No Acute Distress Head Exam: Positive for: NORMAL INSPECTION Skin: Positive for: Normal Color, Warm, Dry. Negative for: Diaphoresis Eye Exam: Positive for: EOMI, PERRL Neck: Positive for: Normal, Supple Cardiovascular/Chest: Negative for: Regular Rate, Rhythm, Chest Non Tender, Murmur, Tachycardia Respiratory: Positive for: Normal Breath Sounds. Negative for: Rales, Rhonchi, Wheezing Gastrointestinal/Abdominal: Positive for: Normal Exam, Bowel Sounds, Soft. Negative for: Tenderness, Distended Extremity: Negative for: Tenderness, Pedal Edema Neurological/Psych: Positive for: Awake, Alert, Normal Tone, Age Appropriate <Lore Shane - Last Filed: 08/14/18 12:30> - Reviewed Nursing Documentation Reviewed: Yes <MayurYordan arellano - Last Filed: 08/19/18 11:55> - Laboratory Results Result Diagrams: 08/14/18 10:30 08/14/18 10:30 - ECG ECG: Positive for: Interpreted By Me (sinus rhythm, no acute changes, PVCs) <Lore Shane - Last Filed: 08/14/18 12:30> - Laboratory Results Result Diagrams: 08/14/18 10:30 08/14/18 10:30 Lab Results: Troponin I < 0.0120 ng/mL (0.00-0.120) 08/14/18 10:30 NT-Pro-B Natriuret Pep 418 pg/ml (0-900) 08/14/18 10:30 Total Bilirubin 0.6 mg/dl (0.2-1.3) 08/14/18 10:30 AST 75 U/L (17-59) H D 08/14/18 10:30 ALT 146 U/L (21-72) H D 08/14/18 10:30 Alkaline Phosphatase 136 U/L (38-126) H D 08/14/18 10:30 Total Protein 7.5 G/DL (6.3-8.2) 08/14/18 10:30 Albumin 4.2 g/dL (3.5-5.0) 08/14/18 10:30 Globulin 3.3 gm/dL (2.2-3.9) 08/14/18 10:30 Albumin/Globulin Ratio 1.3 (1.0-2.1) 08/14/18 10:30 <Yordan Wharton - Last Filed: 08/19/18 11:55> Medical Decision Making Medical Decision Making: DDx include: ACS, CAD, costochondritis, PNA, Plan: -- ASA -- EKG -- CXR -- CBC, CMP, Troponin, PBNP -- instructed if pain returns to notify RN or MD immediately -- Re eval. 1137 -- cbc wnl, cmp wnl though elevated LFTs -- troponin x1 neg, PBNP wnl CXR FINDINGS: LUNGS: The lungs are well inflated and clear. There is mild pulmonary venous congestion. No focal consolidation. PLEURA: No pneumothorax or pleural effusion. CARDIOVASCULAR: Mild cardiomegaly. There are aortic atherosclerotic calcifications present. OSSEOUS STRUCTURES: Within normal limits for the patient's age. VISUALIZED UPPER ABDOMEN: Normal. OTHER FINDINGS: None. IMPRESSION: No active pulmonary disease. 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 voice # [phone] <Lore Shane - Last Filed: 08/14/18 12:30> Disposition - Patient ED Disposition Is Patient to be Admitted: No - Disposition Disposition: Against Medical Advice Disposition Time: 12:29 <Lore Shane - Last Filed: 08/14/18 12:30> - Patient ED Disposition Is Patient to be Admitted: No Doctor Will See Patient In The: Office Counseled Patient/Family Regarding: Studies Performed, Diagnosis, Need For Followup - Disposition Disposition: Against Medical Advice <Yordan Wharton - Last Filed: 08/19/18 11:55> - Clinical Impression Clinical Impression: Left against medical advice, Chest pain - Disposition Referrals: Miles Nelson MD [Staff Provider] - Condition: STABLE Additional Instructions: ROSA ISELA LUJAN, thank you for letting us take care of you today. Your provider was Yordan Wharton MD and you were treated for CHEST PAIN. The emergency medical care you received today was directed at your acute symptoms. If you were prescribed any medication, please fill it and take as directed. It may take several days for your symptoms to resolve. Return to the Emergency Department if your symptoms worsen, do not improve, or if you have any other problems. Please contact your doctor or call one of the physicians/clinics you have been r eferred to that are listed on the Patient Visit Information form that is included in your discharge packet. Bring any paperwork you were given at discharge with you along with any medications you are taking to your follow up visit. Our treatment cannot replace ongoing medical care by a primary care provider outside of the emergency department. Thank you for allowing the [facility] team to be part of your care today. Instructions: Chest Pain, Leaving Against Medical Advice Forms: [employer] (Kazakh) Print Language: ROMANIAN
[2018-08-14] MEDS ORDERED: Aspirin 325 mg EC Tablets PO ONE ×2 (10:41→10:51)
[2018-08-14 10:46] VITALS: O2SAT 97
[2018-08-14 11:10] LABS: BASO # 0.1 K/uL (0.0-0.2); BASO % 1.2 % (0.0-2.0); EOS # 0.2 K/uL (0.0-0.7); EOS % 2.3 % (0.0-4.0); HEMOGLOBIN 12.1 g/dL (12.0-18.0); LYMPH # 1.5 K/uL (1.0-4.3); LYMPH % 21.2 % (20.0-40.0); MEAN CORPUSCULAR HEMOGLOBIN 31.7 pg (27.0-31.0); MEAN PLATELET VOLUME 9.1 fl (7.2-11.7); MONO # 0.4 K/uL (0.0-0.8); MONO % 5.6 % (0.0-10.0); NEUT % 69.7 % (50.0-75.0); NRBC % 0.1 % (0.0-0.0); RBC 3.82 Mil/uL (4.40-5.90); RED CELL DISTRIBUTION WIDTH 14.1 % (11.5-14.5); WHITE BLOOD COUNT 7.1 K/uL (4.8-10.8)
--- NOTE | 2018-08-14 11:13 | RAD ---
Date of service: 08/14/2018 PROCEDURE: CHEST RADIOGRAPH, 1 VIEW HISTORY: Chest pain COMPARISON: 05/27/2018. FINDINGS: LUNGS: The lungs are well inflated and clear. There is mild pulmonary venous congestion. No focal consolidation. PLEURA: No pneumothorax or pleural effusion. CARDIOVASCULAR: Mild cardiomegaly. There are aortic atherosclerotic calcifications present. OSSEOUS STRUCTURES: Within normal limits for the patient's age. VISUALIZED UPPER ABDOMEN: Normal. OTHER FINDINGS: None. IMPRESSION: No active pulmonary disease.
[2018-08-14 11:14] LABS: ALB/GLOB RATIO 1.3 (1.0-2.1); ALBUMIN 4.2 g/dL (3.5-5.0); ALT/SGPT 146 U/L (21-72); AST/SGOT 75 U/L (17-59); BLOOD UREA NITROGEN 12 mg/dl (9-20); CALCIUM 9.2 mg/dL (8.4-10.2); GFR NON-AFRICAN AMERICAN > 60
[2018-08-14 11:23] LABS: B-TYPE NATRIURETIC PEPTIDE 418 pg/ml (0-900)
[2018-08-14 13:14] VITALS: BP 164/96; PULSE 88; RESP 18; TEMP 98.7
--- NOTE | 2018-08-14 15:12 | CARD ---
APPROVED REPORT Date of service: 08/14/2018 EKG Measurement Heart [id number] <Conclusion> Sinus rhythm with marked sinus arrhythmia with frequent premature ventricular complexes Otherwise normal ECG
== END 2018-08-14 12:57 | disposition left against medical advice (07) ==
LOC: H.ER 09:10 → UNDOADMOB 12:07 → H.ERHOLD 12:07 → H.ER 12:57
DX: R07.89 Other chest pain (principal); E11.9 Type 2 diabetes mellitus without complications; E78.00 Pure hypercholesterolemia, unspecified

== ENCOUNTER 2018-09-25 08:39 | Emergency (ER) | payer MEDICARE, OTHER ==
[2018-09-25 08:44] VITALS: TEMP 98
[2018-09-25 08:45] VITALS: BMI 31.5
--- NOTE | 2018-09-25 09:35 | ED PDOC ---
HPI: General Adult Time Seen by Provider: 09/25/18 09:08 Chief Complaint (Nursing): Abnormal Skin Integrity Chief Complaint (Provider): Abnormal Skin Integrity History Per: Patient, Other (Homemaker) History/Exam Limitations: no limitations Onset/Duration Of Symptoms: Days (4) Additional Complaint(s): 88 y/o male brought in by homemaker presents to the ED complaining of a rash since 4 days ago. Homemaker states the rash is itchy on patient's torso and extremities. Patient is unsure what cause it. Patient denies fever, pain, allergies, illness, drainage, new detergent, soap, or any new medications. PMD: Miles Rosales Past Medical History Reviewed: Historical Data, Nursing Documentation, Vital Signs Vital Signs: Last Vital Signs Temp 98 F 09/25/18 08:42 Pulse 96 H 09/25/18 08:42 Resp 16 09/25/18 08:42 BP 176/77 H 09/25/18 08:42 Pulse Ox 96 09/25/18 08:42 Primary Care Provider: Miles Nelson - Medical History PMH: Asthma, Diabetes (type II), HTN, Hypercholesterolemia Denies: HIV, Chronic Kidney Disease - Family History Family History: States: Unknown Family Hx - Immunization History Hx Tetanus Toxoid Vaccination: No Hx Influenza Vaccination: No Hx Pneumococcal Vaccination: No - Home Medications Home Medications: Ambulatory Orders Medication Instructions Recorded [place]-3 Acid Ethyl Esters [Lovaza] 1 gm PO DAILY #0 capsule 12/24/15 Aspirin [Ecotrin] 81 mg PO DAILY #30 tabec 09/19/17 Enalapril Maleate [Vasotec] 10 mg PO DAILY #30 tab 09/19/17 Folic Acid 1 mg PO DAILY #30 tab 09/19/17 Metoprolol Succinate XL [Toprol XL] 25 mg PO DAILY #30 tab 09/19/17 Rosuvastatin Calcium [Crestor] 5 mg PO DAILY #30 tab 09/19/17 amLODIPine [Norvasc] 10 mg PO DAILY #30 tab 09/19/17 DiphenhydrAMINE [Benadryl] 25 mg PO Q6 #30 cap 09/25/18 Hydrocortisone [Cortisone] 28 gm TP Q6 #1 gel..gram. 09/25/18 - Allergies Allergies/Adverse Reactions: Allergies Allergy/AdvReac Type Severity Reaction Status Date / Time No Known Allergies Allergy Verified 09/25/18 09:00 Review of Systems ROS Statement: Except As Marked, All Systems Reviewed And Found Negative Skin: Positive for: Rash Physical Exam - Reviewed Nursing Documentation Reviewed: Yes Vital Signs Reviewed: Yes - Physical Exam Appears: Positive for: Well, Non-toxic, No Acute Distress Head Exam: Positive for: ATRAUMATIC, NORMAL INSPECTION, NORMOCEPHALIC Skin: Positive for: Normal Color, Warm, Rash (erythema palpable with overline exfoliation. No vesicle or confluents.) Eye Exam: Positive for: EOMI, Normal appearance, PERRL ENT: Positive for: Normal ENT Inspection Neck: Positive for: Normal, Painless ROM, Supple Cardiovascular/Chest: Positive for: Regular Rate, Rhythm. Negative for: Murmur Respiratory: Positive for: Normal Breath Sounds. Negative for: Wheezing Gastrointestinal/Abdominal: Positive for: Normal Exam, Soft. Negative for: Tenderness Back: Positive for: Normal Inspection. Negative for: L CVA Tenderness, R CVA Tenderness Extremity: Positive for: Normal ROM Neurological/Psych: Positive for: Awake, Alert, Normal Tone, Oriented (x3). Negative for: Motor/Sensory Deficits - ECG O2 Sat by Pulse Oximetry: 96 Medical Decision Making Medical Decision Making: Time:929 Impression: Rash 929: Will discharge patient with Benadryl and cream. Patient will follow up with PMD and computer installer is rash persist. Scribe Attestation: Documented by Ariella Sheth, acting as a scribe for Wendy Adame Provider Scribe Attestation: All medical record entries made by the Scribe were at my direction and perso christiano dictated by me. I have reviewed the chart and agree that the record accurately reflects my personal performance of the history, physical exam, medical decision making, and the department course for this patient. I have also personally directed, reviewed, and agree with the discharge instructions and disposition. Disposition - Clinical Impression Clinical Impression: Rash and nonspecific skin eruption - Disposition Referrals: Miles Nelson MD [Staff Provider] - Disposition Time: 09:30 Condition: STABLE Additional Instructions: Take Benadryl for itching. Apply cream for itching. Return to the emergency department if you develop fever, trouble breathing, or other new symptoms. Follow up with your primary medical doctor or computer installer if symptoms continue. Prescriptions: DiphenhydrAMINE [Benadryl] 25 mg PO Q6 #30 cap Hydrocortisone [Cortisone] 28 gm TP Q6 #1 gel..gram. Instructions: Skin Rash (DC), Topical Corticosteroid Medicines Forms: [facility] (Maltese) Print Language: PERSIAN
[2018-09-25 10:31] VITALS: BP 154/86; PULSE 88; RESP 18
[2018-09-26 15:41] VITALS: O2SAT 96
== END 2018-09-25 10:30 | disposition home or self-care (01) ==
LOC: H.ER 08:39
DX: R21 Rash and other nonspecific skin eruption (principal); E11.9 Type 2 diabetes mellitus without complications; I10 Essential (primary) hypertension; J45.909 Unspecified asthma, uncomplicated